=== PATIENT | male | born 1995 | race Two or more races ===

== ENCOUNTER 2023-10-23 12:56 | Outpatient (CLI) | payer MEDICAID | END 2023-10-23 23:59 | disposition home or self-care (01) | LOC: MRI 12:56 | PROVIDERS: ATTEND Nurse Practitioner Family | DX: M25.561 Pain in right knee (principal) | CPT/HCPCS: 73721 ==

== ENCOUNTER 2024-11-16 15:31 | Outpatient (CLI) | payer MEDICAID ==
--- NOTE | 2024-11-16 20:22 | RADIOLOGY REPORT ---
EXAM: MR MRI UPPER EXTREMITY LEFT INDICATION: 29 years old, Male; PAIN IN LEFT SHOULDER. PAIN IN LEFT SHOULDER TECHNIQUE: Multiplanar, multisequence MR images of the left shoulder were obtained in the absence of gadolinium contrast material. COMPARISON: None available at the time of dictation. FINDINGS: [CORACOACROMIAL ARCH]: Normal acromioclavicular joint. Intact coracoclavicular ligaments. Intact jenna coacromial ligaments. No subacromial/subdeltoid bursal fluid. [ROTATOR CUFF]: Intact. [BICEPS TENDON]: Intermediate signal intensity of the intra-articular segment long head of the biceps tendon correlate for tendinosis. [LABRUM]: Intact. [CARTILAGE]: No measurable cartilage defect. [GLENOHUMERAL JOINT]: No joint effusion. No intra-articular body. [BONES]: No acute fracture, osseous contusion, or aggressive focal osseous lesion. [MUSCLES]: Normal muscle bulk of the rotator cuff muscles. [NEUROVASCULAR/LYMPH NODES]: Normal. [OTHER]: None. IMPRESSION: 1. Intermediate signal intensity of the intra-articular segment long head of the biceps tendon correl ate for tendinosis and internal impingement
== END 2024-11-16 23:59 | disposition home or self-care (01) ==
LOC: MRI02 15:31
PROVIDERS: ATTEND Family Medicine
DX: M25.512 Pain in left shoulder (principal)
CPT/HCPCS: 73221